=== PATIENT | female | born 1970 | race Caucasian/White ===

== ENCOUNTER 2016-08-11 16:06 | Observation (INO) | payer BC ==
[2016-08-11] MEDS ORDERED: Aspirin Low Dose CHEW TAB* 81 MG PO ONE (18:07)
[2016-08-11 18:16] LABS: Hematocrit 37 % (35-47); Hemoglobin 11.9 g/dl (12.0-16.0); Mean Corpuscular HGB Conc 32 g/dl (31-36); Mean Corpuscular Hemoglobin 25 pg (27-31); Mean Corpuscular Volume 77 fL (80-97); Mean Platelet Volume 9 um3 (7.4-10.4); Red Blood Count 4.82 10^6/ul (4.0-5.4); Red Cell Distribution Width 15 % (10.5-15); White Blood Count 9.4 10^3/ul (3.5-10.8)
[2016-08-11 18:28] LABS: ALT 27 U/L (7-52); Albumin 4.2 g/dL (3.2-5.2); Alkaline Phosphatase 44 U/L (34-104); BUN/Creatinine Ratio 29.2 (8-20); Blood Urea Nitrogen 19 mg/dL (6-24); CO2 Carbon Dioxide 27 mmol/L (22-32); Calcium 9.3 mg/dL (8.6-10.3); Chloride 96 mmol/L (101-111); EGFR African American 127.9 (>60); EGFR Non-African American 99.5 (>60); Globulin 3.2 g/dL (2-4); Glucose 116 mg/dL (70-100); Sodium 130 mmol/L (133-145); Total Protein 7.4 g/dL (6.4-8.9)
--- NOTE | 2016-08-11 18:33 | RAD ---
INDICATION: Hypertension COMPARISON: None TECHNIQUE: An AP portable view obtained at 1818 hours is submitted. FINDINGS: Bones/Soft Tissues: There are no acute bony findings. Cardiomediastinal: The cardiomediastinal silhouette is normal. Lungs: There are no infiltrates. Pleura: There are no pleural effusions. Other: None IMPRESSION: NO ACTIVE DISEASE.
[2016-08-11] MEDS ORDERED: Metoprolol Tartrate IV* 1 MG/ML 5 ML VIAL IV ONE (19:18)
[2016-08-11] MEDS ORDERED: Aspirin TAB* 325 MG PO ONE (19:18)
[2016-08-11] MEDS ORDERED: Ondansetron INJ* 2 MG/ML VIAL IV PRN (20:00)
[2016-08-11] MEDS ORDERED: Acetaminophen TAB* 325 MG PO PRN (20:00)
[2016-08-11] MEDS ORDERED: hydrALAZINE IV* 20 MG/ML VIAL IV SLOW PU PRN (20:00)
[2016-08-11] MEDS: cloNIDine TAB* 0.1 MG PO SCH ×2 (20:35→21:49)
[2016-08-11] MEDS: amLODIPine TAB* 5 MG PO SCH (20:35)
--- NOTE | 2016-08-11 22:58 | HP ---
HISTORY AND PHYSICAL: DATE OF ADMISSION: 08/11/16 PRIMARY CARE PROVIDER: [facility]. ATTENDING PHYSICIAN WHILE IN THE HOSPITAL: Eyad Herndon MD * (report dictated by Ronald Cheung NP). CHIEF COMPLAINT: Elevated blood pressure. HISTORY OF PRESENT ILLNESS: Mrs. Reyes is a 45-year-old female patient who carries a history of hypertension since the age of 21. She states she has been taking her medications as prescribed. She has not missed any doses. She states that in April, her last blood pressure was in the 170s and her Vasotec hydrochlorothiazide was doubled. She comes in today because she was sitting at work, she felt flush. She had an episode of chest discomfort on the left side, worse with a deep breath, lasted 1 second and then went away. 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 When they checked, it was noted that the systolics were in the 200s and her diastolics were over 110. She was referred to her primary who evaluated her, did an EKG. It was noted that her blood pressure was 260 systolically and it was felt that she should be evaluated in the ER for this. The patient does states that she has a dull frontal headache, but she denies having any chest pressure now. Denies having any shortness of breath. Denies having any swelling in the legs. Denies having any difficulty with urination. She states that there was concern and so she decided to come in. The blood pressure here in the ER was noted to be in the 200s. She denies having any recent illnesses. She does state that she does drink coffee about 2 cups a day. Sometimes, she does drink soda throughout the day. There has been no reports of drug abuse and no reports of vled-amo-[id number] congestants. She was evaluated, it was noted that the blood pressure was in the 200s and because of this, the hospitalist service was asked to evaluate for admission. PAST MEDICAL HISTORY: Significant for hypertension. PAST SURGICAL HISTORY: She has had a tubal ligation. HOME MEDICATIONS: According to her list include: 1. Naproxen 1 tablet daily as needed. 2. Vasotec/hydrochlorothiazide 10/25 mg, she takes 2 of those tablets daily. 3. Prozac 20 mg daily. 4. Clonidine 0.2 mg p.o. b.i.d. ALLERGIES TO MEDICATION: Include no known drug allergies. FAMILY HISTORY: She is adopted, but she does believe her biological father had a type of cancer. SOCIAL HISTORY: She used to be a pack a day smoker. She quit in 2003. She rarely drinks alcohol. She is with children. Surrogate decision maker is her . REVIEW OF SYSTEMS: There is no documented fever. She denied having any significant weight change. There was no double vision. There is no ear discharge. She denies having any rhinorrhea. No sore throat. No thyroid enlargement. There was one episode of chest discomfort. It is now gone. She denies having any shortness of breath. Denies having any abdominal pain. There is no nausea, no vomiting. There is no dysuria. No frequency, no loss of consciousness, no pruritus, and no skin ulceration. Review of 14 systems completed, all others negative. PHYSICAL EXAMINATION GENERAL: At this time, Mrs. Reyes is a 45-year-old female patient. She does not appear to be in any acute distress. She is sitting in the ER stretcher. She is well nourished, well developed. VITAL SIGNS: Reveals blood pressure now 226/101. She just received her 5 of Lopressor. Heart rate 83, respirations 15, O2 sat 98%, temperature 98.1. HEENT: Head: Atraumatic, normocephalic. Eyes: EOMs are intact. Sclerae anicteric. Throat: Oral mucosa appears to be moist. No oropharyngeal erythema. NECK: Supple. LUNGS: Clear to auscultation bilaterally. No wheezes, rales, or rhonchi. HEART: Sounds S1, S2. Regular rate and rhythm. No murmurs, rubs, or gallops. ABDOMEN: Soft, flat, nontender. Bowel sounds present. EXTREMITIES: Pulses 2+ throughout. She is able to move all 4 extremities with 5/5 strength. NEUROLOGIC: The patient is awake. He is alert. He is oriented x3. Tongue midline. Hand Cloth Examiner were equal. No gross focal deficits. SKIN: Intact. DIAGNOSTIC STUDIES/LAB DATA: Labs today revealed WBC of 9.4, RBC of 4.82, hemoglobin 11.9, hematocrit of 37, platelet count of 263. Sodium was 130, potassium 3.5, chloride 96, bicarb 27, BUN 19, creatinine of 0.65, glucose 116, lactic 1.1, calcium 9.3, total bili 0.4, AST 17, ALT 27, alk phos 44, troponin 0 , albumin 4.2. She did have a chest x-ray obtained today as well, which revealed no active disease. She had an EKG obtained today as well, showed a normal sinus rhythm, rate of 80. She did have LVH, but no ST elevations or T- wave inversions. It was reviewed to the previous EKG, it is similar. Old medical records were reviewed. ASSESSMENT AND PLAN: Mrs. Reyes is a 45-year-old female patient coming into the ER today with complaints of one episode of chest discomfort lasting a second. In addition to this, now found to have uncontrolled blood pressure. She will be admitted under observation status for: 1. Hypertensive urgency: At this point, I am going to go ahead and give her 10 of Norvasc, give her her clonidine that she is supposed to take tonight. I have ordered p.r.n. hydralazine. She has been given 5 of Lopressor. She literally was just given this about 10 minutes ago, so I am waiting to see what her blood pressure does and we will continue to follow. She does not have any signs of end organ damage and will continue to follow. 2. Chest pain: This is very atypical. It lasted a second, got worse with a deep breath. I do not believe this is related to the blood pressure. If anything, the dull headache she has is related to the blood pressure. I will cycle her troponins. We will check two more. We will repeat the EKG in the morning. We will follow. 3. DVT prophylaxis: She will be placed on SCDs. 4. Fluids, electrolyte, nutrition: Heart healthy diet. 5. Code status: Full code. 6. I did ask her to abstain from drinking caffeine. TIME SPENT: Time spent on the admission was 60 minutes, greater than half the time was spent vvol-[id number] with the patient obtaining my history and physical, the other half time is spent going over the plan of care with the patient and implementing plan of care. I did discuss the plan of care with my attending, Dr. Herndon; he is in agreement. RONALD CHEUNG NP CC: [facility] * [id number]/CPS #: [id number]
[2016-08-12 06:14] LABS: Hematocrit 35 % (35-47); Hemoglobin 11.3 g/dl (12.0-16.0); Mean Corpuscular HGB Conc 32 g/dl (31-36); Mean Corpuscular Hemoglobin 25 pg (27-31); Mean Corpuscular Volume 76 fL (80-97); Mean Platelet Volume 9 um3 (7.4-10.4); Red Blood Count 4.62 10^6/ul (4.0-5.4); Red Cell Distribution Width 15 % (10.5-15); White Blood Count 7.3 10^3/ul (3.5-10.8)
[2016-08-12 06:31] LABS: BUN/Creatinine Ratio 24.1 (8-20); Calcium 8.7 mg/dL (8.6-10.3); EGFR African American 145.9 (>60); EGFR Non-African American 113.5 (>60); HDL Cholesterol 43.8 mg/dL; Potassium 3.9 mmol/L (3.5-5.0)
[2016-08-12] MEDS: cloNIDine TAB* 0.1 MG PO SCH (07:47)
[2016-08-12] MEDS: amLODIPine TAB* 5 MG PO SCH (07:47)
[2016-08-12] MEDS ORDERED: FLUoxetine CAP* 20 MG PO SCH (09:00)
[2016-08-12] MEDS ORDERED: Enalapril TAB* 20 MG PO SCH (09:00)
[2016-08-12] MEDS ORDERED: Hydrochlorothiazide TAB* 25 MG PO SCH (09:00)
--- NOTE | 2016-08-12 11:25 | DCNOTE ---
Patient seen this morning. Reports feeling well. Mild headache, no recurrence of chest pain. On exam, obese, F, laying in bed in NAD, lungs CTA B/L, no w/r/r, no LE edema D/C home with additional Norvasc 10 mg daily in addition to home medications
[2016-08-12 12:25] VITALS: BP 113/56
--- NOTE | 2016-08-13 02:23 | DS ---
DISCHARGE SUMMARY: DATE OF ADMISSION: 08/11/16 DATE OF DISCHARGE: 08/12/16 PRIMARY CARE PHYSICIAN: [facility]. PRINCIPAL DISCHARGE DIAGNOSIS: Accelerated hypertension. DISCHARGE MEDICATION REGIMEN: 1. Amlodipine 10 mg by mouth daily. 2. Naproxen 500 mg daily as needed for pain. 3. Enalapril hydrochlorothiazide 10/25 two tablets by mouth daily. 4. Fluoxetine 20 mg by mouth daily. 5. Clonidine 0.2 mg by mouth three times daily. STUDIES DONE DURING HOSPITALIZATION: Chest x-ray, impression: No active disease. HISTORY OF PRESENT ILLNESS AND HOSPITAL SUMMARY: Please see the full history and physical by Ronald vargas NP for full details. Briefly, Ms. Reyes is a 45-year- old female with past medical histor y of hypertension, who presents to the hospital after she felt flush at work and had a very brief on e second episode of left-sided chest pain. She checked her blood pressure at work and her systolics were noted to be in the 200s with diastolic over 110. She then was referred to her PCP and her blo od pressure were noted to be even higher there. She was sent to the ED for further evaluation. In the emergency department, she got some Lopressor and was given 10 mg of Norvasc in addition to her h ome medications. She had no further chest pain throughout the hospitalization and her troponins wer e trended and remained negative. She is monitored on telemetry with no arrhythmias and no concernin g changes. Her blood pressure improved significantly with the addition of amlodipine. She will be discharged home on 10 mg, however, she is instructed to buy a blood pressure cuff and that she notes that her blood pressures are low or if she feels dizzy or lightheaded to cut back on the amlodipine from 10 mg daily to 5 mg daily. She will make an appointment with her PCP on Sunday. TIME SPENT: Total time spent on this discharge 40 minutes. This is a summary of the hospitalization, please see the full medical record for further details. [id number]/[facility] #: [id number]
--- NOTE | 2016-08-26 20:53 | ED ---
Santiago Mcintosh Michael, scribed for Alan Tsang MD on 08/11/16 at 1923 . Hypertension - HPI Summary HPI Summary: 45 y/o female was referred to the ED by her PCP office for blood pressure of 232 /137 today. The pt reports that she started feeling "flush" at 1200 today with an increased blood pressure of 200/100. Later in the day, the pt visited her PCP office, and her blood pressure was 232/137. Currently at the ED, her blood pressure is 220/215. She also c/o nausea, chest pain that was aggravated with deep breathes, and a mild MEJIA. The pt denies slurred speech and difficulty ambulating. She denies hx of CAD and DM. The FHx is unknown because pt is adopted. The pt has a hx of high blood pressure episodes one year ago. PA at PCP office believed the pt had a subconjunctival hemorrhage and funduscopic exam was completed and nml. - History of Current Complaint Chief Complaint: EDHypertension Stated Complaint: HIGH BLOOD PRESSURE Time Seen by Provider: 08/11/16 16:26 Hx Obtained From: Patient, Medical Records Onset/Duration: Started Hours Ago, Still Present Timing: Constant Aggravating Factor(s): Nothing Alleviating Factor(s): Nothing Associated Signs & Symptoms: Negative - visual changes. trouble ambulating., Chest Pain, Headaches, Other: - nausea - Allergies/Home Medications Allergies/Adverse Reactions: Allergies Allergy/AdvReac Type Severity Reaction Status Date / Time No Known Allergies Allergy Verified 08/21/16 08:26 PMH/Surg Hx/FS Hx/Imm Hx Endocrine/Hematology History: Denies: Hx Diabetes Cardiovascular History: Denies: Hx Coronary Artery Disease - Cancer History Hx Chemotherapy: No Hx Radiation Therapy: No Infectious Disease History: No Infectious Disease History: Denies: Traveled Outside the [place] in Last 30 Days - Family History Known Family History: Positive: Unknown Family History: Pt is abdopted and does not know FHx - Social History Occupation: Employed Full-time Lives: With Family Alcohol Use: None Substance Use Type: Reports: None Smoking Status (MU): Never Smoked Tobacco Review of Systems Negative: Fever, Chills Negative: Erythema Negative: Sore Throat Positive: Chest Pain, Other - hypertension Negative: Shortness Of Breath, Cough Positive: Nausea. Negative: Abdominal Pain, Vomiting Negative: hematuria Negative: Edema Negative: Rash Positive: Headache All Other Systems Reviewed And Are Negative: Yes Physical Exam - Summary Physical Exam Summary: Constitutional: Well-developed, Well-nourished, Alert. (-) Distressed Skin: Warm, Dry HENT: Normocephalic; Atraumatic Eyes: Conjunctiva normal Neck: Musculoskeletal ROM normal neck. (-) JVD, (-) Stridor, (-) Tracheal deviation Cardio: Rhythm regular, rate normal, Heart sounds normal; Intact distal pulses; The pedal pulses are 2+ and symmetric. Radial pulses are 2+ and symmetric. ~(-) Murmur Pulmonary/Chest wall: Effort normal. (-) Respiratory distress, (-) Wheezes, (-) Rales Abd: Soft, (-) Tenderness, ~(-) Distension, (-) Guarding, (-) Rebound Musculoskeletal: (-) Edema Lymph: (-) Cervical adenopathy Neuro: Alert, Oriented x3 Psych: Mood and affect Normal Funduscopic Exam normal as well Triage Information Reviewed: Yes Vital Signs On Initial Exam: Initial Vitals Temp Pulse Resp BP Pulse Ox 98.1 F 90 20 226/115 100 08/11/16 16:16 08/11/16 16:16 08/11/16 16:16 08/11/16 16:16 08/11/16 16:16 Vital Signs Reviewed: Yes Diagnostics - Vital Signs Vital Signs Temp Pulse Resp BP Pulse Ox 08/11/16 18:41 15 226/101 08/11/16 18:22 15 08/11/16 17:30 86 15 191/92 98 08/11/16 17:00 85 15 187/100 99 08/11/16 16:30 92 17 217/99 99 08/11/16 16:27 97 99 08/11/16 16:25 225/104 08/11/16 16:23 256/138 08/11/16 16:16 98.1 F 90 20 226/115 100 - Laboratory Lab Results: Lab Results 08/11/16 08/11/16 08/11/16 Range/Units 16:43 16:43 18:30 WBC 9.4 (3.5-10.8) 10^3/ul RBC 4.82 (4.0-5.4) 10^6/ul Hgb 11.9 L (12.0-16.0) g/dl Hct 37 (35-47) % MCV 77 L (80-97) fL MCH 25 L (27-31) pg MCHC 32 (31-36) g/dl RDW 15 (10.5-15) % Plt Count 263 (150-450) 10^3/ul MPV 9 (7.4-10.4) um3 Neut % (Auto) 53.7 (38-83) % Lymph % (Auto) 33.6 (25-47) % [place] % (Auto) 6.8 (1-9) % Eos % (Auto) 4.9 (0-6) % Baso % (Auto) 1.0 (0-2) % Absolute Neuts (auto) 5.0 (1.5-7.7) 10^3/ul Absolute Lymphs (auto) 3.2 (1.0-4.8) 10^3/ul Absolute Monos (auto) 0.6 (0-0.8) 10^3/ul Absolute Eos (auto) 0.5 (0-0.6) 10^3/ul Absolute Basos (auto) 0.1 (0-0.2) 10^3/ul Absolute Nucleated RBC 0.01 10^3/ul Nucleated RBC % 0.1 Sodium 130 L (133-145) mmol/L Potassium TNP Chloride 96 L (101-111) mmol/L Carbon Dioxide 27 (22-32) mmol/L Anion Gap TNP BUN 19 (6-24) mg/dL Creatinine 0.65 (0.51-0.95) mg/dL Est GFR ( Amer) 127.9 (>60) Est GFR (Non-Af Amer) 99.5 (>60) BUN/Creatinine Ratio 29.2 H (8-20) Glucose 116 H (70-100) mg/dL Lactic Acid 1.1 (0.5-2.0) mmol/L Calcium 9.3 (8.6-10.3) mg/dL Total Bilirubin 0.40 (0.2-1.0) mg/dL AST TNP ALT 27 (7-52) U/L Alkaline Phosphatase 44 (34-104) U/L Troponin I 0.00 (<0.04) ng/mL Total Protein 7.4 (6.4-8.9) g/dL Albumin 4.2 (3.2-5.2) g/dL Globulin 3.2 (2-4) g/dL Albumin/Globulin Ratio 1.3 (1-3) Result Diagrams: 08/12/16 05:47 08/12/16 05:46 Lab Statement: Any lab studies that have been ordered have been reviewed, and results considered in the medical decision making process. - Radiology CXR Xray Interpretation: No Acute Changes Radiology Interpretation Completed By: Radiologist - EKG EK EKG Rhythm: Sinus Rhythm - 80 bpm EKG Interpretation: no STEMI. no ectopy Hypertension Course/Dx - Diagnoses Provider Diagnoses: Hypertensive emergency, Chest pain, unspecified - Physician Notifications Discussed Care Of Patient With: Dr. Herndon (Hospitalist) Time Discussed With Above Provider: 19:28 Instructed by Provider To: Admit As Inpatient - pt is accepted as an admission by Dr. Herndon Discharge - Discharge Plan Condition: Good Disposition: ADMITTED TO [facility] The documentation as recorded by the Santiago beltran Michael accurately reflects the service I personally performed and the decisions made by , Alan Tsang MD.
== END 2016-08-12 13:00 | disposition home or self-care (01) ==
LOC: ED 16:06 → MEDTELE 19:56
PROVIDERS: ADMIT Internal Medicine; ATTEND Hospitalist
DX: I16.0 Hypertensive urgency (principal); Z87.891 Personal history of nicotine dependence; R07.9 Chest pain, unspecified; Z79.899 Other long term (current) drug therapy
CPT/HCPCS: 36415; 71010; 80048; 80053; 80061; 83036; 83605; 84484; 85025; 85610; 93005; 96374; 99283; A9270-GY; G0378; J3490

== ENCOUNTER 2018-03-20 17:45 | Emergency (ER) | payer BC ==
--- NOTE | 2018-03-20 17:56 | UC ---
Skin Complaint HPI - History of Current Complaint Time Seen by Provider: 03/20/18 17:55 Stated Complaint: SKIN COMPLAINT - Allergy/Home Medications Allergies/Adverse Reactions: Allergies Allergy/AdvReac Type Severity Reaction Status Date / Time No Known Allergies Allergy Verified 03/20/18 17:51 Home Medications: Home Medications Ergocalciferol (Vitamin D2) [Vitamin D2] 2,000 unit PO DAILY 03/20/18 [History Confirmed 03/20/18] Spironolactone 25 mg PO DAILY 03/20/18 [History Confirmed 03/20/18] amLODIPine TAB* [Norvasc 5 mg TAB*] 5 mg PO DAILY 03/20/18 [History] PMH/Surg Hx/FS Hx/Imm Hx - Surgical History Surgical History: Yes Surgery Procedure, Year, and Place: [facility] silicone implant permanent female contraception device-safe to 3T - Social History Alcohol Use: None Substance Use Type: None Smoking Status (MU): Former Smoker Discharge - Discharge Plan Referrals: Solis Flores MD [Primary Care Provider] -
[2018-03-20 18:05] VITALS: BP 156/98
[2018-03-20] MEDS ORDERED: Lidocaine 1%* 5 ML VIAL INJ ONE (18:23)
[2018-03-20] MEDS ORDERED: Lidocaine 1%* 5 ML VIAL ONE (18:24)
--- NOTE | 2018-03-20 18:25 | UC ---
Skin Complaint HPI - HPI Summary HPI Summary: NOTICED A TENDER SPOT RIGHT PERINEUM ABOUT 1 MONTH AGO. OVER THE PAST FEW DAYS IT GOT BIGGER AND MORE PAINFUL. SAW PCP WHO ADVISED CHIEF NURSING EXECUTIVE F/U. COULD NOT GET INTO CHIEF NURSING EXECUTIVE SO CAME HERE. NO FEVER. - History of Current Complaint Chief Complaint: UCSkin Time Seen by Provider: 03/20/18 17:55 Stated Complaint: SKIN COMPLAINT Hx Obtained From: Patient Hx Last Menstrual Period: 03/06/2018 Onset/Duration: Gradual Onset, Lasting Weeks, Still Present Timing: Constant Onset Severity: Mild Current Severity: Moderate Pain Intensity: 2 Pain Scale Used: 0-10 Numeric Location: Discrete - RIGHT PERINEUM Character: Pain, Raised Aggravating Factor(s): Touch Alleviating Factor(s): Nothing Associated Signs & Symptoms: Positive: Tenderness - Allergy/Home Medications Allergies/Adverse Reactions: Allergies Allergy/AdvReac Type Severity Reaction Status Date / Time No Known Allergies Allergy Verified 03/20/18 17:51 Home Medications: Home Medications Ergocalciferol (Vitamin D2) [Vitamin D2] 2,000 unit PO DAILY 03/20/18 [History Confirmed 03/20/18] Spironolactone 25 mg PO DAILY 03/20/18 [History Confirmed 03/20/18] amLODIPine TAB* [Norvasc 5 mg TAB*] 5 mg PO DAILY 03/20/18 [History] Review of Systems Constitutional: Negative Skin: Other - TENDER LESION RIGHT PERINEUM Respiratory: Negative Cardiovascular: Negative Gastrointestinal: Negative All Other Systems Reviewed And Are Negative: Yes PMH/Surg Hx/FS Hx/Imm Hx Cardiovascular History: Hypertension - Surgical History Surgical History: Yes Surgery Procedure, Year, and Place: [facility] silicone implant permanent female contraception device-safe to 3T - Family History Known Family History: Negative: Hypertension - Social History Alcohol Use: Occasionally Substance Use Type: None Smoking Status (MU): Former Smoker Physical Exam Triage Information Reviewed: Yes Appearance: Well-Appearing, No Pain Distress, Well-Nourished Vital Signs: Initial Vital Signs Temp 99.4 F 03/20/18 17:51 Pulse 92 03/20/18 17:51 Resp 18 03/20/18 17:51 BP 156/98 03/20/18 17:51 Pulse Ox 99 03/20/18 17:51 Vital Signs Reviewed: Yes Eyes: Positive: Conjunctiva Clear ENT: Positive: Hearing grossly normal Neck: Positive: Supple Respiratory: Positive: No respiratory distress, No accessory muscle use Cardiovascular: Positive: Pulses Normal Abdomen Description: Positive: Soft Musculoskeletal: Positive: No Edema Neurological: Positive: Alert Psychological: Positive: Age Appropriate Behavior Skin: Positive: Other - EXTERNAL GENITALIA WNL. 1.5CM TENDER AREA OF FLUCTUANCE RIGHT PERINEUM. Course/Dx - Course Course Of Treatment: 1% LIDOCAINE FOR LOCAL ANESTHESIA. 11 BLADE USED TO INCISE CYST. BLOODY SEROUS FLUID EXPRESSED. IODOFORM PLACED. SPECIMEN SENT FOR CULTURE. HOT SOAKS. KEFLEX. RECHECK AND REMOVE PACKING IN 2 DAYS. - Diagnoses Provider Diagnoses: CYST RIGHT PERINUEM Procedures - Incision and Drainage Right PERINEUM Anesthesia: Local - 1% LIDOCAINE Instrument(s): Scalpel - 11 BLADE Packing: Gauze Discharge - Sign-Out/Discharge Documenting (check all that apply): Patient Departure All imaging exams completed and their final reports reviewed: No Studies - Discharge Plan Condition: Stable Disposition: HOME Prescriptions: Cephalexin CAP* [Keflex 500 CAP*] 1,000 mg PO BID #[id number] cap Patient Education Materials: Abscess (ED) Referrals: Solis Flores MD [Primary Care Provider] - (KEEP YOUR APPT SCHEDULED) Additional Instructions: YOUR SKIN LESION WAS MORE CONSISTENT WITH A CYST THAN AN ABSCESS. WARM/HOT COMPRESSES/SOAKS AT LEAST 4 TIMES DAILY CHANGE BANDAGE DAILY AND NEEDED IF BECOMES SOILED OR WET RETURN FOR WOUND RECHECK AND PACKING REMOVAL IN 2 DAYS. OKAY IF IT FALLS OUT SOONER THAN THAT. SPECIMEN SENT FOR CULTURE TAKE CEPHALEXIN FOR THE FULL COURSE. - Billing Disposition and Condition Condition: STABLE Disposition: Home
== END 2018-03-20 19:00 | disposition home or self-care (01) ==
LOC: UCEAST 17:45
DX: N90.7 Vulvar cyst (principal); I10 Essential (primary) hypertension; Z87.891 Personal history of nicotine dependence
CPT/HCPCS: 10060; 87070; 87205; 87640; 87641; 99212; G0463

== ENCOUNTER → 2018-05-09 13:46 | Emergency (ER) | payer BC ==
[~2018-05-09 13:46] MED LIST: Aspirin 81 mg CHEW TAB* 81 MG TAB.CHEW PO ONE; Iodixanol* (CONTRAST) 320 MG/ML 100 ML SDV IV ONE; Iohexol 350* (CONTRAST) 500 ML MDV IV ONE
--- NOTE | 2018-05-09 14:12 | ED ---
HPI Chest Pain - HPI Summary HPI Summary: A 47 y/o female presents to the ED c/o CP since 11:45 05/09/2018. She states that she saw her home energy rater this morning and was fine, but at work she c/o CP , nausea, back pain, dizziness, diarrhea, cough and numbness/tingling to her right arm. She rates her CP as 1/10 currently but states that she did have similar CP issue without the other symptoms last week lasting 2-3 hours. She denies Fever, Chills, Erythema (eyes), Sore throat, Shortness of Breath, Abdominal pain, Vomiting, Dysuria, Hematuria, Edema and Rash. She denies a Hx of blood clots but has a Hx of HTN and heart murmur. She denies drinking but smokes cigarettes occasionally. She also states that she had a fever of 105 on 05/01/2018 but her fever resolved. A couple weeks ago she also drove five hours for four days. 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 Hx Last Menstrual Period: 03/06/2018 Onset/Duration: Started Hours Ago, Still Present Timing: Constant Initial Severity: Mild Current Severity: Mild Pain Intensity: 1 Pain Scale Used: 0-10 Numeric Chest Pain Radiates: No - Additional Pertinent History Primary Care Physician: [id number] - Allergy/Home Medications Allergies/Adverse Reactions: Allergies Allergy/AdvReac Type Severity Reaction Status Date / Time No Known Allergies Allergy Verified 05/09/18 13:52 PMH/Surg Hx/FS Hx/Imm Hx Endocrine/Hematology History: Denies: Hx Diabetes Cardiovascular History: Reports: Hx Hypertension Denies: Hx Pacemaker/ICD Respiratory History: Denies: Hx Asthma Sensory History: Denies: Hx Hearing Aid Psychiatric History: Denies: Hx Panic Disorder - Cancer History Hx Chemotherapy: No Hx Radiation Therapy: No - Surgical History Surgery Procedure, Year, and Place: Adiana silicone implant permanent female contraception device-safe to 3T Infectious Disease History: No Infectious Disease History: Denies: Traveled Outside the [place] in Last 30 Days - Family History Known Family History: Negative: Hypertension - Social History Alcohol Use: Occasionally Substance Use Type: Reports: None Smoking Status (MU): Former Smoker Review of Systems Negative: Fever, Chills Negative: Erythema Negative: Sore Throat Positive: Chest Pain Positive: Cough. Negative: Shortness Of Breath Positive: Diarrhea, Nausea. Negative: Abdominal Pain, Vomiting Negative: dysuria, hematuria Positive: Myalgia - back. Negative: Edema Negative: Rash Neurological: Other - Positive: dizzines Positive: Paresthesia, Numbness All Other Systems Reviewed And Are Negative: Yes Physical Exam - Summary Physical Exam Summary: Constitutional: Well-developed, Well-nourished, Alert. (-) Distressed Skin: Warm, Dry HENT: Normocephalic; Atraumatic Eyes: Conjunctiva normal Neck: Musculoskeletal ROM normal neck. (-) JVD, (-) Stridor, (-) Tracheal deviation Cardio: Rhythm regular, rate normal, Heart sounds normal; Intact distal pulses; The pedal pulses are 2+ and symmetric. Radial pulses are 2+ and symmetric. (-) Murmur Pulmonary/Chest wall: Effort normal. (-) Respiratory distress, (-) Wheezes, (-) Rales Abd: Soft, (-) epigastric tenderness, (-) Distension, (-) Guarding, (-) Rebound Musculoskeletal: (-) Edema Lymph: (-) Cervical adenopathy Neuro: Alert, Oriented x3 Psych: Mood and affect Normal Triage Information Reviewed: Yes Vital Signs On Initial Exam: Initial Vitals Temp Pulse Resp BP Pulse Ox 98 F 74 16 145/100 99 05/09/18 13:48 05/09/18 13:48 05/09/18 13:48 05/09/18 13:48 05/09/18 13:48 Vital Signs Reviewed: Yes Diagnostics - Vital Signs Vital Signs Temp Pulse Resp BP Pulse Ox 05/09/18 13:48 98 F 74 16 145/100 99 - Laboratory Result Diagrams: 05/09/18 14:11 05/09/18 14:11 Lab Statement: Any lab studies that have been ordered have been reviewed, and results considered in the medical decision making process. - Radiology CXR Radiology Interpretation Completed By: Radiologist - No active cardiopulmonary disease. ED physician reviewed this report. - CT Chest/abdomen/pelvis CTA CT Interpretation Completed By: Radiologist - #. Negative for dissection or aneurysm of the abdominal aorta. #. Hepatosteatosis. ED physician reviewed this report. - EKG 13:56 Cardiac Rate: NL - 71 bpm EKG Rhythm: Sinus Rhythm Summary of EKG Findings: no STEMI 18:16 Cardiac Rate: NL - 78 bpm EKG Rhythm: Sinus Rhythm Summary of EKG Findings: no STEMI Re-Evaluation - Re-Evaluation First Eval Re-Evaluation Time: 19:45 Change: Improved Comment: Pt is CP free. Chest Pain Course/Dx - Course Course Of Treatment: A 47 y/o female presents to the ED c/o CP since 11:45 05/09. She states that she saw her home energy rater this morning and was fine, but at work she c/o CP, nausea, back pain, dizziness, diarrhea, cough and numbness/ tingling to her right arm. She rates her CP as 1/10 currently but states that she did have similar CP issue without the other symptoms last week lasting 2-3 hours. She denies Fever, Chills, Erythema (eyes), Sore throat, Shortness of Breath, Abdominal pain, Vomiting, Dysuria, Hematuria, Edema and Rash. She denies a Hx of blood clots but has a Hx of HTN and heart murmur. She denies drinking but smokes cigarettes occasionally. She also states that she had a fever of 105 on 05/01/2018 but her fever resolved. A couple weeks ago she also drove five hours for four days. Her PE was unremarkable. Her EKG showed NSR at 71 bpm. Her CXR revealed: No active cardiopulmonary disease. Chest/Abdomen/ Pelvis CTA impression: Negative for dissection or aneurysm of the abdominal aorta. Hepatosteatosis. Her repeat EKG showed NSR at 78 bpm. Upon re-eval the pt was CP free. Dx: Chest Pain. Considered pericarditis, recent febrile illness. The patient will be discharged home and was instructed to follow up with the [facility]. - Diagnoses Provider Diagnoses: Chest pain, unspecified Discharge - Sign-Out/Discharge Documenting (check all that apply): Patient Departure - DC - Discharge Plan Condition: Stable Disposition: HOME Patient Education Materials: Chest Pain (ED) Forms: *Work Release Referrals: [facility] [Outside] - 3 Days Solis Flores MD [Medical Doctor] - 3 Days Additional Instructions: RETURN TO THE EMERGENCY DEPARTMENT FOR CHANGING OR WORSENING SYMPTOMS - Billing Disposition and Condition Condition: STABLE Disposition: Home - Attestation Statements Document Initiated by Scribe: Yes Documenting Scribe: All Wang Provider For Whom Scribe is Documenting (Include Credential): Alan Tsang MD Scribe Attestation: I, All Wang, scribed for Alan Tsang MD on 05/10/18 at 1117. Scribe Documentation Reviewed: Yes Provider Attestation: The documentation as recorded by the scribe, All Wang accurately reflects the service I personally performed and the decisions made by me, Alan Tsang MD
[2018-05-09 14:28] LABS: ABS Basophils 0.1 10^3/ul (0-0.2); ABS Eosinophils 0.2 10^3/ul (0-0.6); ABS Lymphocytes 2.7 10^3/ul (1.0-4.8); ABS Monocytes 0.7 10^3/ul (0-0.8); ABS Neutrophils 9.3 10^3/ul (1.5-7.7); ABS Nucleated RBC 0 10^3/ul; Eosinophil % 1.6 % (0-6); Hematocrit 39 % (35-47); Lymphocyte % 20.7 % (25-47); Mean Corpuscular HGB Conc 34 g/dl (31-36); Mean Corpuscular Hemoglobin 27 pg (27-31); Mean Corpuscular Volume 80 fL (80-97); Mean Platelet Volume 7.3 fL (7.4-10.4); Nucleated Red Blood Cells % 0.1; Platelet Count 365 10^3/ul (150-450); Red Blood Count 4.81 10^6/ul (4.00-5.40); Red Cell Distribution Width 15 % (10.5-15)
[2018-05-09 14:42] LABS: EGFR Non-African American 100.3 (>60)
--- OUTSIDE RECORDS SUMMARY | 2018-05-09 14:49 | XMS REPORT ---
:1970 Author Organization Formerly [facility] Address [address] [place] [address] Care Team Providers Name Role Phone Solis Daly Unavailable Unavailable PROBLEMS Type Condition ICD9-CM Code SRI21-VT Code Onset Condition SNOMED Code Dates Status Problem Disorder of N64.9 Active 45411227 breast Problem BMI Z68.35 Active 758374071 35.0-35.9,adult Problem Obstructive sleep G47.33 Active 18751659 apnea syndrome Problem Hypertensive I16.0 Active 785772175 urgency Problem HTN I10 Active 60424431 (hypertension) Problem Seasonal F39 Active 934189711 depression Problem Cervical high R87.810 Active 487689630 risk HPV (human papillomavirus) test positive Problem Other obesity due E66.09 Active 614305445 to excess calories Problem Body mass index Z68.34 Active 165979873 (BMI) of 34.0-34.9 in adult Problem Abnormal R92.8 Active 907536278 mammogram Problem Obesity (BMI E66.9 Active 191206362 35.0-39.9 without comorbidity) Problem Prediabetes R73.03 Active 948738604 Problem Heart murmur on R01.1 Active 199868390 physical examination ALLERGIES No Known Allergies ENCOUNTERS Encounter Location Date Diagnosis [address] Feb, [place] [address] [facility] [address] [facility] Feb, Perianal abscess K61.0 [place] [address] [facility] [address] [facility], Feb, [place]ian[place] K61[place]0 [place] [address] 24 Feb, 2018 HTN ( hypertension) I10 [place] [address] 18 Feb, 2018 HTN (hypertension) I10 [place] [address] [place], 10 Feb, 2018 HTN (hypertension ) I10 ; [place] [address] Heart murmur on physical examination R01.1 ; Obstructive sleep apnea syndrome G47.33 ; Other obesity due to excess calories E66.09 and Body mass index (BMI) of 34.0-34.9 in adult Z68.[address] October, [place] [address] [facility] [address] [place] [address] [place], [place] [address] [place], October, [place] [address] Z00.00 ; Encounter for Papanicolaou smear of cervix Z12.4 ; HTN (hypertension) I10 ; Prediabetes R73.03 ; Obesity (BMI 35.0-39.9 without comorbidity) E66.9 ; BMI 35.0-35.9,adult Z68.35 ; Screening for STD (sexually transmitted disease) Z11.3 ; Heart murmur on physical examination R01.1 and Abnormal mammogram R92.[address] Sep, [place] [address] Aug, Obesity (BMI 30.0-34.9) [place] [address] [address]66[address] Jul, HTN (hypertension) I10 [place] [address] Jun, [place] [address] [facility] [address] [place] [address] [place], Jun, Influ[place] J11.1 [place] [address] [place], Apr, HTN (hypertension ) I10 ; [place] [address] Obstructive sleep apnea syndrome G47.33 ; Obesity (BMI 30.0-34.9) E66.9 and BMI 34.0-34.9,adult Z68.[address] 13 Feb, 2017 HTN (hypertension) I10 [place] [address] [facility] [address] [place], Jan, [place] [address] syndrome G47.33 ; Obesity (BMI 30.0-34.9) E66.9 and BMI 30.0-30.9,adult Z68.30 [facility] [address] [facility] Jan, HTN ( hypertension) I10 [place] [address] [facility] [address] Dec, HTN (hypertension) I10 [address] [place] [address] [facility] [address] [place] Dec, [place] [address] [facility] [address] [place], October, [place] [address] adult medical examination w/o abnormal findings Z00.00 ; Essential hypertension I10 ; Mammogram abnormal R92.8 and Obesity (BMI 30-39.9) E66.9 [facility] [address] [place], [place] [address] [facility] [address] [place], Sep, [place] [address] [facility] [address] [place], [place] [address] [facility] [address] [place], [place] [address] [facility] [address] [place], Aug, [place] [address] I16.0 [facility] [address] Aug, [address] [place] [address] [facility] [address] [place], Aug, HTN (hypertension ) I10 ; [place] [address] Hypertensive urgency I16.0 and Seasonal depression F39 [place] [facility] [address] [place], [place] [address] [facility] [address] [place], Jul, [place] [address] I16.0 [facility] [address] [place], [place] [address] [facility] [address] [place], Jul, HTN (hypertension ) [place]10 [place] [address] [facility] [address] [place], Jul, [place] [address] I16.0 [place] [facility] [address] [place], [place] [address] [place] [facility] [address] [place], [place] [address] [place] [facility] [address] [place], Apr, Disorder [place] N64.9 [place] [address] [place] [facility] [address] [place], [place] [address] [place] [facility] [address] [place], [place] [address] [place] [facility] [address], Apr, [place] R92.8 [place] [address] ; HTN (hypertension) I10 ; Herpes labialis 054.9 and Seasonal depression F39 [place] [facility] [address] [place], [place] [address] [place] [facility] [address] [place], [place] [address] [place] [facility] [address] [place], [place] [address] [place] [facility] [address] [place], [place] [address] [place] [facility] [address] [place] [address] [place] [facility] [address] [place] [address] [place] [facility] [address] [place] [address] [place] [facility] [address], Sep, [place] [address] Z00.00 ; Cervical high risk HPV (human papillomavirus) test positive R87.810 ; HTN (hypertension) I10 ; Seasonal depression F39 and Screening for malignant neoplasm of breast Z12.39 [place] [facility] [address] [place], [place] [address] [facility] [address] [place], [place] [address] [place] [facility] [address] [place], Sep, [place] [address] Z00.00 [facility] [address] [facility] Jun, HTN ( hypertension) I10 [place] [address] [place] [facility] [address] [place], Mar, HTN (hypertension ) I10 ; [place] [address] Seasonal depression F39 ; Skin tag L91.8 and Preventative health care Z00.00 IMMUNIZATIONS No Known Immunizations SOCIAL HISTORY Never Assessed REASON FOR REFERRAL FUNCTIONAL STATUS PLAN OF CARE Activity Details Follow Up 3 Months Reason:HTN VITAL SIGNS Temperature 98.8 degrees Fahrenheit 2018-03-04 Heart Rate 22 2018-03-04 Weight 181.4 2018-03-04 Height 5' 1" in 2018-03-04 BMI 34.27 kg/m2 2018-03-04 Oximetry 100 % 2018-03-04 Blood pressure systolic 160 mm Hg 2018-03-04 Blood pressure diastolic 98 mm Hg 2018-03-04 MEDICATIONS Medication Instructions Dosage Frequency Start End Duration Status Date Date Spironolactone 25 Orally Once a 1 tablet 24h Active MG day with food Fluoxetine HCl 20 Orally Once a 1 capsule 24h 90 Active mg day Clonidine HCl 0.3 Orally Once a 2 tablet 24h October, days Active MG day 2017 Vitamin D2 Active Enalapril-Hydrochl Orally Once a 1 tablets 24h Active orothiazide 10-25 day MG Norvasc 5 MG Orally Once a 1 tablets 24h Active day Naprosyn 500 mg Orally Twice a 1 tablet Active day as needed PROCEDURES Procedure Date Ordered Result Body Site BLOOD PRESSURE, MEASURED Mar 04, 2018 Oxygen saturation results documented and reviewed Mar 04, 2018 BODY MASS INDEX DOCD Mar 04, 2018 SMOKING + 2ND HAND ASSESSED Mar 04, 2018 BMI >=25 and Follow Up Plan Documented Mar 04, 2018 RESULTS No Results REASON FOR VISIT Follow up, PVP; PHQ2,BMI F/U, TETANUS SHOT-IA Insurance Providers [facility] Patient Patient Patient Patient Patient Subscriber Subscriber Subscriber Group Insurance Plan Plan Plan Plan ID Relationship Address Phone Name Date of ID Name Date of No Type Insurance Insurance Insurance Coverage to Subscriber Address Phone Name Dates Excellus [phone] Excellus Judy [id number] BCBS PPO [id number] BCBS PPO Eric 2 EPO [place] Trad [id number] Case [phone] Case self Judy [id number] Management Wily Zavala 02 Management [facility] [address] [facility] MEDICAL (GENERAL) HISTORY Type Description Date Medical History Hypertension Medical History Seasonal depression Medical History Right knee meniscal tear Medical History Herpes labialis Surgical History Adreine (sp?) like [employer] silicone in [place] for 2011 control Hospitalization History Blood pressure issues 07/2016
--- OUTSIDE RECORDS SUMMARY | 2018-05-09 14:49 | XMS REPORT ---
:1970 Author Organization [facility] Address [address] [place] [address] Care Team Providers Name Role Phone Solis Daly Unavailable Unavailable PROBLEMS Type Condition ICD9-CM Code ZUO66-ZI Code Onset Condition SNOMED Code Dates Status Problem Disorder of N64.9 Active 63416560 breast Problem BMI Z68.35 Active 289262308 35.0-35.9,adult Problem Obstructive sleep G47.33 Active 93410067 apnea syndrome Problem Hypertensive I16.0 Active 969295282 urgency Problem HTN I10 Active 50807350 (hypertension) Problem Seasonal F39 Active 756401062 depression Problem Cervical high R87.810 Active 222593916 risk HPV (human papillomavirus) test positive Problem Other obesity due E66.09 Active 638074498 to excess calories Problem Body mass index Z68.34 Active 289917643 (BMI) of 34.0-34.9 in adult Problem Abnormal R92.8 Active 142878996 mammogram Problem Obesity (BMI E66.9 Active 422931799 35.0-39.9 without comorbidity) Problem Prediabetes R73.03 Active 122726178 Problem Heart murmur on R01.1 Active 613800570 physical examination ALLERGIES No Information ENCOUNTERS Encounter Location Date Diagnosis [address] Feb, [place] [address] [facility] [address] [facility] Feb, Perianal abscess K61.0 [place] [address] [facility] [address] [facility], Feb, [place]ian[place]61[place] [address] 24 Feb, 2018 HTN ( hypertension) I10 [place] [address] 18 Feb, 2018 HTN (hypertension) I10 [place] [address] [facility] [address] [place] [address] [place], 10 Feb, 2018 HTN (hypertension ) I10 ; [place] [address] Heart murmur on physical examination R01.1 ; Obstructive sleep apnea syndrome G47.33 ; Other obesity due to excess calories E66.09 and Body mass index (BMI) of 34.0-34.9 in adult Z68.[address] October, [place] [address] [facility] [address] [place] [address] [place], [place] [address] [place], October, [place] [address] Z00.00 ; Encounter for Papanicolaou smear of cervix Z12.4 ; HTN (hypertension) I10 ; Prediabetes R73.03 ; Obesity (BMI 35.0-39.9 without comorbidity) E66.9 ; BMI 35.0-35.9,adult Z68.35 ; Screening for STD (sexually transmitted disease) Z11.3 ; Heart murmur on physical examination R01.1 and Abnormal mammogram R92.[address] Sep, [place] [address] Aug, Obesity (BMI 30.0-34.9) [place] [address] Jul, HTN (hypertension) I10 [place] [address] Jun, [place] [address] [facility] [address] [place] [address] [place], Jun, Influ[place] J11.1 [place] [address] [place], Apr, HTN (hypertension ) I10 ; [place] [address] Obstructive sleep apnea syndrome G47.33 ; Obesity (BMI 30.0-34.9) E66.9 and BMI 34.0-34.9,adult Z68.[address] 13 Feb, 2017 HTN (hypertension) I10 [place] [address] [facility] [address] [place], Jan, [place] [address] syndrome G47.33 ; Obesity (BMI 30.0-34.9) E66.9 and BMI 30.0-30.9,adult Z68.30 [facility] [address] [facility] Jan, HTN ( hypertension) I10 [place] [address] [facility] [address] Dec, HTN (hypertension) I10 [address] [place] [address] [facility] [address] [place], [place] [address] [facility] [address] [place], October, [place] [address] adult medical examination w/o abnormal findings Z00.00 ; Essential hypertension I10 ; Mammogram abnormal R92.8 and Obesity (BMI 30-39.9) E66.9 [facility] [address] [place], [place] [address] [facility] [address] [place], Sep, [place] [address] I16.0 [facility] [address] [place], [place] [address] [facility] [address] [place], [place] [address] [facility] [address] [place], Aug, [place] [address] I16.0 [facility] [address] Aug, [address] [place] [address] [facility] [address] [place], Aug, HTN (hypertension ) I10 ; [place] [address] Hypertensive urgency I16.0 and Seasonal depression F39 [facility] [address] [place], [place] [address] [facility] [address] [place], Jul, [place] [address] I16.0 [facility] [address] [place], [place] [address] [facility] [address] [place], Jul, HTN (hypertension ) [place] [address] [facility] [address] [place], Jul, [place] [address] I16.0 [place] [facility] [address] [place], [place] [address] [place] [facility] [address] [place], [place] [address] [place] [facility] [address] [place], Apr, Disorder [place] N64.9 [place] [address] [place] [facility] [address] [place], [place] [address] [place] [facility] [address] [place], [place] [address] [place] [facility] [address] [place], Apr, M[place]ogram [place] R92.8 [place] [address] ; HTN (hypertension) I10 ; Herpes labialis 054.9 and Seasonal depression F39 [place] [facility] [address] [place], [place] [address] [place] [facility] [address] [place], [place] [address] [place] [facility] [address] [place], [place] [address] [place] [facility] [address] [place], [place] [address] [place] [facility] [address] [place] [address] [place] [facility] [address] [place] [address] [place] [facility] [address] [place] [address] [place], [place] [address] [place] [facility] [address] [place], [place], [place] [address] Z00.00 ; Cervical high risk HPV (human papillomavirus) test positive R87.810 ; HTN (hypertension) I10 ; Seasonal depression F39 and Screening for malignant neoplasm of breast Z12.39 [place] [facility] [address] [place], [place] [address] [facility] [address] [place], [place] [address] [place] [facility] [address] [place], Sep, [place] [address] Z00.00 [facility] [address] [facility] Jun, HTN ( hypertension) I10 [place] [address] [place] [facility] [address] [place], Mar, HTN (hypertension ) I10 ; [place] [address] Seasonal depression F39 ; Skin tag L91.8 and Preventative health care Z00.00 IMMUNIZATIONS No Known Immunizations SOCIAL HISTORY Never Assessed REASON FOR REFERRAL FUNCTIONAL STATUS PLAN OF CARE VITAL SIGNS MEDICATIONS Unknown Medications PROCEDURES No Known procedures RESULTS No Results REASON FOR VISIT Information Request Insurance Providers [facility] Member Patient Patient Patient Patient Patient Subscriber Subscriber Subscriber Group Insurance Plan Plan Plan Plan ID Relationship Address Phone Name Date of ID Name Date of No Type Insurance Insurance Insurance Coverage to Subscriber Address Phone Name Dates Case [phone] Case self Judy [id number] Management Wily Zavala Management [facility] [address] [facility] [employer] [phone] [employer] Judy [id number] BCBS PPO [id number] BCBS PPO Eric 2 EPO Tr[place] E[place] Trad [id number] MEDICAL (GENERAL) HISTORY Type Description Date Medical History Hypertension Medical History Seasonal depression Medical History Right knee meniscal tear Medical History Herpes labialis Surgical History Adreine (sp?) like [employer] silicone in [place] for 2011 control Hospitalization History Blood pressure issues 07/2016
--- OUTSIDE RECORDS SUMMARY | 2018-05-09 14:49 | XMS REPORT | Continuity of Care Document ---
:1970 External Reference #:[id number] Author Name Trey Chiu Care Team Providers Name Role Phone Solis Daly MD Primary Care Physician Unavailable Payers Type Date Identification Numbers Payment Provider Subscriber Policy Number: [id number] [employer] Vaibhav Reyes PayID: [id number] [address] [address] [place] [address] Advance Directives Description No Information Available Problems Date Description Provider Status Onset: 08/23/2017 Obstructive sleep apnea [place] Garcia DNP, RN, Active syndrome [employer]ARMACY TE[employer]ER-[facility] Onset: 08/23/2017 Body mass index 30+ - obesity Maine Garcia DNP, RN, Active PHARMACY TE[employer]ER[employer] Family History Date Family Member(s) Problem(s) Comments Father Cancer Father due to Cancer () Father Patient is adopted Mother pt is adopted, Siblings 1 Younger sister. 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 [employer] Tobacco Use Start: Unknown Former Cigarette Smoker Quit in 2005, Used to End: Unknown smoke 6-8 per day for 15 years Smoking Status Reviewed: 05/09/18 Former Cigarette Smoker Quit in 2005, Used to smoke 6-8 per day for 15 years ETOH Use Occasionally consumes alcohol Tobacco Use Start: Unknown Patient is a former End: Unknown smoker Recreational Drug Use Denies Drug Use Exercise Type/Frequency Exercises sporadically Allergies, Adverse Reactions, Alerts Description No Known Drug Allergies Medications Medication Date Status Form Strength Qnty SIG Indications Ordering Provider Evelia NOGUEIRA 05/09/ Active Caps ER 120mg 30caps take 1 by I10 Gabriella S. 2018 24HR mouth at [place], night to N.P. start and possibly in the Am with 180mg tab Cartia XT 04/02/ Active Caps ER 180mg 30caps 1 tablet Jesu 2018 24HR by mouth F. once a day Regina Arellano Spironolactone 01/24/ Active Tablets 25mg 30tabs take 1 tab I10 Gabriella S. 2018 by mouth [place], daily N.P. Clonidine HCL / Active Tablets 0.3mg 2 tab q hs Unknown 0000 Fluoxetine HCL / Active Capsules 20mg Take One Unknown 0000 Capsule By Mouth Every Day For 90 Days Advil / Active Tablets 200mg as needed Unknown 0000 Acetaminophen / Active Tablets 500mg 2 tabs bid Unknown 0000 as needed Melatonin / Active Tablets 3mg once at Unknown 0000 night as needed Vitamin D / Active Tablets 1000Unit as needed Unknown 0000 Naproxen Sodium / Active Capsules 220mg prn Unknown 0000 Cpap / Active Device for use Unknown 0000 while sleeping Metformin HCL / Active Tablets 500mg 1 by mouth Unknown 0000 once per day in the am Metformin HCL / Active Tablets 500mg 2 tabs by Unknown 0000 mouth in the evening Cardizem 05/09/ Hx Tablets 60mg Gabriella S. 2018 - [place], 05/08/ N.P. 2018 Cephalexin 03/21/ Hx Capsules 500mg 20caps one tablet [facility] 2018 - po bid x [place], days 2017 Metoprolol 01/09/ Hx Tablets ER 25mg 60tabs 1 by mouth Jesu Succinate ER 2018 - 24HR every day F. 01/24/ Wendy Arellano M.D. Amlodipine / Hx Tablets 5mg Take Two Unknown Besylate 0000 - Tablets By Mouth 2017 Every Day Enalapril / Hx Tablets 10-25mg Take one Unknown Maleate/Hydrochl 0000 - Tablet By orothiazide Mouth 2018 Every Day Norvasc / Hx Tablets 5mg 1 tab po Unknown 0000 - once daily 2017 Immunizations Description No Information Available Vital Signs Date Vital Result Comment 05/09/2018 8:18am Height 60.5 inches 5'0.50" Weight 172.38 lb without shoes Heart Rate 68 /min BP Systolic Sitting 126 mmHg left arm BP Diastolic Sitting 88 mmHg left arm BMI (Body Mass Index) 33.1 kg/m2 Ejection Fraction 65-70% Echocardiogram 01/07/18 04/02/2018 3:36pm Height 60.5 inches 5'0.50" Weight 175.00 lb Heart Rate 88 /min BP Systolic 156 mmHg lue/reg cuff BP Diastolic 82 mmHg lue/reg cuff BMI (Body Mass Index) 33.6 kg/m2 Ejection Fraction 60-65% stress echo. 02-13-2018 03/29/2018 10:25am Height 60.5 inches 5'0.50" Weight 177.00 lb Heart Rate 88 /min BP Systolic 140 mmHg BP Diastolic 82 mmHg O2 % BldC Oximetry 99 % BMI (Body Mass Index) 34.0 kg/m2 03/21/2018 11:53am Height 60.5 inches 5'0.50" Weight 177.00 lb Heart Rate 91 /min BP Systolic 130 mmHg BP Diastolic 82 mmHg O2 % BldC Oximetry 99 % BMI (Body Mass Index) 34.0 kg/m2 Last Menstrual Period [id number] 01/30/2018 8:09am Height 60.5 inches 5'0.50" Weight 183.44 lb Heart Rate 70 /min BP Systolic Sitting 114 mmHg Rue large cuff BP Diastolic Sitting 74 mmHg Rue large cuff Respiratory Rate 16 /min O2 % BldC Oximetry 99 % BMI (Body Mass Index) 35.2 kg/m2 01/24/2018 8:45am Height 60.5 inches 5'0.50" Weight 182.00 lb Heart Rate 80 /min BP Systolic Sitting 160 mmHg lue lg cuff BP Diastolic Sitting 90 mmHg lue lg cuff BP Systolic Standing 182 mmHg BP Diastolic Standing 100 mmHg Respiratory Rate 16 /min BMI (Body Mass Index) 35.0 kg/m2 Ejection Fraction 65-70% 01/07/2018 echo 12/31/2017 9:52am Height 60.5 inches 5'0.50" Weight 181.00 lb w/shoes Heart Rate 84 /min BP Systolic Sitting 184 mmHg lue lg cuff BP Diastolic Sitting 112 mmHg lue lg cuff BP Systolic Standing 184 mmHg lue lg cuff BP Diastolic Standing 112 mmHg lue lg cuff BP Systolic Lying Down 194 mmHg la sitting repeat BP Diastolic Lying Down 104 mmHg la sitting repeat BMI (Body Mass Index) 34.8 kg/m2 08/23/2017 10:02am Height 60.5 inches 5'0.50" Weight 184.38 lb Heart Rate 74 /min BP Systolic Sitting 122 mmHg Lue large cuff BP Diastolic Sitting 88 mmHg Lue large cuff Respiratory Rate 12 /min O2 % BldC Oximetry 98 % BMI (Body Mass Index) 35.4 kg/m2 05/04/2017 7:22am Height 60.5 inches 5'0.50" Weight 188.00 lb Heart Rate 76 /min BP Systolic Sitting 136 mmHg BP Diastolic Sitting 86 mmHg Respiratory Rate 14 /min O2 % BldC Oximetry 99 % BMI (Body Mass Index) 36.1 kg/m2 Neck Circumference in inches 16 Results Test Date Facility Test Result H/L Range Note Catecholamines [facility] Norepinephrine 59 pg/mL Abnormal 1 Plasma 8 [address] [place] [address] [phone] Epinephrine <25 pg/mL 2 Dopamine <25 pg/mL 3 Basic Metabolic Panel 01/09/2018 [facility] Sodium 135 mmol/L N 135-145 [address] [place] [address] [phone] Potassium 4.6 mmol/L N 3.5-5.0 Chloride 100 mmol/L Low 101-111 Co2 Carbon Dioxide 29 mmol/L N 22-32 Anion Gap 6 mmol/L N 2-11 Glucose 97 mg/dL N 70-100 Blood Urea Nitrogen 17 mg/dL N 6-24 Creatinine 0.67 mg/dL N 0.51-0.95 BUN/Creatinine Ratio 25.4 High 8-20 Calcium 9.4 mg/dL N 8.6-10.3 Egfr Non- 95.2 >60 Egfr 115.2 >60 4 Laboratory test 01/09/2018 [facility] Aldosterone 25 ng/dL Abnormal <=21 5 finding [address] [place] [address] [phone] Cortisol 8.90 g/dL 6 1 REFERENCE VALUE 70-750 (Supine) 200-1700 (Standing) 2 REFERENCE VALUE <111 (Supine) <141 (Standing) 3 REFERENCE VALUE <30 (no postural change) ADDITIONAL INFORMATION PLEASE NOTE: High/Low flagging is based on supine normal values. This test was developed and its performance characteristics determined by [facility] in a manner consistent with CLIA requirements. This test has not been cleared or approved by the U.S. Food and Drug Administration. Test Performed by: [facility] [address] [place] [address] 4 Because ethnic data is not always readily available, this report includes an eGFR for both -Americans and non- Americans. The National Kidney Disease Education Program (NKDEP) does not endorse the use of the MDRD equation for patients that are not between the ages of 18 and 70, are , have extremes of body size, muscle mass, or nutritional status, or are non- or non-. According to the National Kidney Foundation, irrespective of diagnosis, the stage of the disease is based on the level of kidney function: Stage Description GFR(mL/min/1.73 m(2)) 1 Kidney damage with normal or decreased GFR 90 2 Kidney damage with mild decrease in GFR 60-89 3 Moderate decrease in GFR 30-59 4 Severe decrease in GFR 15-29 5 Kidney failure <15 (or dialysis) 5 ADDITIONAL INFORMATION Reference range for patients 11 years and older is based on upright A.M. collection from subjects without sodium restrictions. This test was developed and its performance characteristics determined by [facility] in a manner consistent with CLIA requirements. This test has not been cleared or approved by the U.S. Food and Drug Administration. Test Performed by: [facility] [address] [place] [address] 6 AM 8.7-22.4 PM <10 Procedures Date Code Description Status 04/02/2018 68350 EKG Tracing & Interpretation Completed 02/13/2018 77919 ECHO Stress Test Incl Perf Contiuous ekg Monitoring Completed W/Phys Superv 01/07/2018 92628 ECHO Transthoracic, Real-Time 2D With Doppler And Color Completed Flow 01/07/2018 48131 ECHO Transthoracic, Real-Time 2D With Doppler And Color Completed Flow 12/31/2017 40420 EKG Tracing & Interpretation Completed 11/23/2017 [id number] Mammogram Completed 05/13/2017 13065 Sleep Study Unattended,HRT Rate,Oxygen Sat,Resp Completed Effort/Airflow 08/12/2016 46250 EKG, Interpretation Only Completed Encounters Type Date Location Provider Dx Diagnosis Office Visit 04/02/2018 [facility] Jesu Walker I10 Essential ( primary) 3:40p Regina Arellano hypertension R01.1 Cardiac murmur, unspecified E66.9 Obesity, unspecified [facility], N90.7 Vulvar cyst 10:30a [facility] Office [facility]/21[facility]2018 [facility] N90.7 Vulvar cyst 11:30a [facility] Office Visit 01/30/2018 [facility] [place] G47.33 Obstructive sleep 8:30a [facility] Garcia, RN, apnea (adult) [facility]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) Z68.35 Body mass index (BMI) 35.0-35.9, adult Office Visit 01/24/2018 9:00a [facility] Gabriella Palma R01.1 Cardiac murmur, Of [facility] Qing Dorado unspecified G47.33 Obstructive sleep apnea (adult) (pediatric) R07.9 Chest pain, unspecified I10 Essential (primary) hypertension Office Visit 12/31/2017 9:40a [facility] Jesu Walker G47.33 Obstructive sleep Regina Arellano apnea (adult) (pediatric) E66.9 Obesity, unspecified R01.1 Cardiac murmur, unspecified I10 Essential (primary) hypertension R07.9 Chest pain, unspecified Office Visit 08/23/2017 [facility] [place] G47.33 Obstructive sleep 10:00a [facility] Garcia, RN, apnea (adult) [facility] (pediatric) E66.9 Obesity, unspecified Z68.35 Body mass index (BMI) 35.0-35.9, adult Office Visit 05/04/2017 7:30a [facility] [place] G47.33 Obstructive sleep [facility] MD Tyrone apnea (adult) [facility] (pediatric) E66.09 Other obesity due to excess calories G47.14 Hypersomnia due to medical condition Z68.36 Body mass index (BMI) 36.0-36.9, adult Office Visit 08/12/2016 [facility] I16.0 Hypertensive 7:17a Assoc,karina Olea MD urgency Hospitalists I10 Essential (primary) hypertension Office Visit 08/11/2016 [facility] U[facility] I16.0 Hypertensive 7:16a Asskarina aguero N.P. urgency Hospitalists I10 Essential (primary) hypertension Plan of Treatment Future Appointment(s):07/31/2018 8:15 am - [place] Garcia DNP, RN, [facility] at [facility]05/09/2018 - Gabriella Dorado, N.P.I10 Essential (primary) hypertensionNew Medication:Cartia XT 120 mg - take 1 by mouth at night to start and possibly in the Am with 180mg tabFollow up:3 mo OV JFMRecommendations:STOP enalapril/hctz Increase diltiazem to a total of 300mg daily (180 +120mg) Take BP as you are doing. Call in 2 weeks with BPs. Call sooner if BPs consistenly > 150R01.1 Cardiac murmur, cesimllcgmrO24.9 Obesity , yodnlbtubzsI92.9 Chest pain, unspecified
--- OUTSIDE RECORDS SUMMARY | 2018-05-09 14:49 | XMS REPORT ---
:1970 Author Organization Formerly [facility] Address [address] [place] [address] Care Team Providers Name Role Phone Solis Daly Unavailable Unavailable PROBLEMS Type Condition ICD9-CM Code CHE85-UW Code Onset Condition SNOMED Code Dates Status Problem Disorder of N64.9 Active 57000894 breast Problem BMI Z68.35 Active 900972601 35.0-35.9,adult Problem Obstructive sleep G47.33 Active 52004721 apnea syndrome Problem Hypertensive I16.0 Active 595567760 urgency Problem HTN I10 Active 13250195 (hypertension) Problem Seasonal F39 Active 490017490 depression Problem Cervical high R87.810 Active 436813236 risk HPV (human papillomavirus) test positive Problem Other obesity due E66.09 Active 674544013 to excess calories Problem Body mass index Z68.34 Active 135428557 (BMI) of 34.0-34.9 in adult Problem Abnormal R92.8 Active 844255273 mammogram Problem Obesity (BMI E66.9 Active 903090254 35.0-39.9 without comorbidity) Problem Prediabetes R73.03 Active 181147965 Problem Heart murmur on R01.1 Active 366026646 physical examination ALLERGIES No Information ENCOUNTERS Encounter Location Date Diagnosis [address] Feb, [place] [address] [facility] [address] [facility] Feb, Perianal abscess K61.0 [place] [address] [facility] [address] [facility], Feb, [place]ian[place] K61[place] [address] 24 Feb, 2018 HTN ( hypertension) I10 [place] [address] 18 Feb, 2018 HTN (hypertension) I10 [place] [address] [facility] [address] [place] [address] [place], 10 Feb, 2018 HTN (hypertension ) I10 ; [place] [address] Heart murmur on physical examination R01.1 ; Obstructive sleep apnea syndrome G47.33 ; Other obesity due to excess calories E66.09 and Body mass index (BMI) of 34.0-34.9 in adult Z68.[address] October, [place] [address] [facility] [address] [place] [address] [place], [place] [address] [place], October, [place] [address] Z00.00 ; Encounter for Papanicolaou smear of cervix Z12.4 ; HTN (hypertension) I10 ; Prediabetes R73.03 ; Obesity (BMI 35.0-39.9 without comorbidity) E66.9 ; BMI 35.0-35.9,adult Z68.35 ; Screening for STD (sexually transmitted disease) Z11.3 ; Heart murmur on physical examination R01.1 and Abnormal mammogram R92.[address] Sep, [place] [address] Aug, Obesity (BMI 30.0-34.9) [place] [address] [address]66[address] Jul, HTN (hypertension) I10 [place] [address] Jun, [place] [address] [facility] [address] [place] [address] [place], Jun, [place] J11.1 [place] [address] [place], Apr, HTN (hypertension ) I10 ; [place] [address] Obstructive sleep apnea syndrome G47.33 ; Obesity (BMI 30.0-34.9) E66.9 and BMI 34.0-34.9,adult Z68.[address] 13 Feb, 2017 HTN (hypertension) I10 [place] [address] [facility] [address] [place], Jan, [place] [address] syndrome G47.33 ; Obesity (BMI 30.0-34.9) E66.9 and BMI 30.0-30.9,adult Z68.30 [facility] [address] [facility] Jan, HTN ( hypertension) I10 [place] [address] [facility] [address] Dec, HTN (hypertension) I10 [address] [place] [address] [facility] [address] [place] Dec, [place] [address] [facility] [address] [place], October, [place] [address] adult medical examination w/o abnormal findings Z00.00 ; Essential hypertension I10 ; Mammogram abnormal R92.8 and Obesity (BMI 30-39.9) E66.9 [facility] [address] [place], [place] [address] [facility] [address] [place], Sep, [place] [address] I16.0 [facility] [address] [place] Sep, [place] [address] [facility] [address] [place], [place] [address] [facility] [address] [place], Aug, [place] [address] I16.0 [facility] [address] Aug, [address] [place] [address] [facility] [address] [place], Aug, HTN (hypertension ) I10 ; [place] [address] Hypertensive urgency I16.0 and Seasonal depression F39 [facility] [address] [place], [place] [address] [facility] [address] [place], Jul, [place] [address] I16.0 [facility] [address] [place], [place] [address] [facility] [address] [place], Jul, HTN (hypertension ) [place] [address] [facility] [address] [place], Jul, [place] [address] I16.0 [place] [facility] [address] [place], [place] [address] [place] [facility] [address] [place], [place] [address] [place] [facility] [address] [place], Apr, Disorder [place] N64.9 [place] [address] [place] [facility] [address] [place], [place] [address] [place] [facility] [address] [place], [place] [address] [place] [facility] [address] [place], Apr, [place] R92.8 [place] [address] ; HTN (hypertension) I10 ; Herpes labialis 054.9 and Seasonal depression F39 [place] [facility] [address] [place], [place] [address] [place] [facility] [address] [place], [place] [address] [place] [facility] [address] [place], [place] [address] [place] [facility] [address] [place], [place] [address] [place] [facility] [address] [place], [place] [address] [place] [facility] [address] [place] [address] [place] [facility] [address] [place] [address] [place], [place] [address] [place] [facility] [address] [place], Sep, [place] [address] Z00.00 ; Cervical high risk HPV (human papillomavirus) test positive R87.810 ; HTN (hypertension) I10 ; Seasonal depression F39 and Screening for malignant neoplasm of breast Z12.39 [place] [facility] [address] [place], [place] [address] [facility] [address] [place], [place] [address] [place] [facility] [address] [place], Sep, [place] [address] Z00.00 [facility] [address] [facility] Jun, HTN ( hypertension) I10 [place] [address] [place] [facility] [address] [place], Mar, HTN (hypertension ) I10 ; [place] [address] Seasonal depression F39 ; Skin tag L91.8 and Preventative health care Z00.00 IMMUNIZATIONS No Known Immunizations SOCIAL HISTORY Never Assessed REASON FOR REFERRAL FUNCTIONAL STATUS PLAN OF CARE VITAL SIGNS MEDICATIONS Medication Instructions Dosage Frequency Start Date End Date Duration Status Clonidine HCl Orally Once a day 2 tablet 24h 29 October, 90 days Active 0.3 MG 2018 PROCEDURES No Known procedures RESULTS No Results REASON FOR VISIT rx line Insurance Providers [facility] Health Member Patient Patient Patient Patient Patient Subscriber Subscriber Subscriber Group Insurance Plan Plan Plan Plan ID Relationship Address Phone Name Date of ID Name Date of No Type Insurance Insurance Insurance Coverage to Subscriber Address Phone Name Dates Case [phone] Case self Judy [id number] Management Wily Zavala Management [facility] [address] [facility] [phone] [employer] Judy [id number] BCBS PPO [id number] BCBS PPO Eric 2 EPO Tr[place] EPO Trad [id number] MEDICAL (GENERAL) HISTORY Type Description Date Medical History Hypertension Medical History Seasonal depression Medical History Right knee meniscal tear Medical History Herpes labialis Surgical History Adreine (sp?) like Esure silicone in [place] for 2011 control Hospitalization History Blood pressure issues 07/2016
--- OUTSIDE RECORDS SUMMARY | 2018-05-09 14:49 | XMS REPORT ---
:1970 Author Organization [facility] Address [address] [place] [address] Care Team Providers Name Role Phone Gio Moeller Unavailable Unavailable PROBLEMS Type Condition ICD9-CM Code ELN11-TX Code Onset Condition SNOMED Code Dates Status Problem Disorder of N64.9 Active 74710987 breast Problem BMI Z68.35 Active 257684646 35.0-35.9,adult Problem Obstructive sleep G47.33 Active 71889878 apnea syndrome Problem Hypertensive I16.0 Active 472998694 urgency Problem HTN I10 Active 18782069 (hypertension) Problem Seasonal F39 Active 929786172 depression Problem Cervical high R87.810 Active 951651119 risk HPV (human papillomavirus) test positive Problem Other obesity due E66.09 Active 867547647 to excess calories Problem Body mass index Z68.34 Active 679819256 (BMI) of 34.0-34.9 in adult Problem Abnormal R92.8 Active 549773142 mammogram Problem Obesity (BMI E66.9 Active 714481183 35.0-39.9 without comorbidity) Problem Prediabetes R73.03 Active 691199509 Problem Heart murmur on R01.1 Active 825359403 physical examination ALLERGIES No Known Allergies ENCOUNTERS Encounter Location Date Diagnosis [address] Feb, [place] [address] [facility] [address] [facility] Feb, Perianal abscess K61.0 [place] [address] [facility] [address] [facility] Feb, [place]ian[place] K61[place]0 [place] [address] 24 Feb, 2018 HTN ( hypertension) I10 [place] [address] 18 Feb, 2018 HTN (hypertension) I10 [place] [address] [facility] [address] [place] [address] [place], 10 Feb, 2018 HTN (hypertension ) I10 ; [place] [address] Heart murmur on physical examination R01.1 ; Obstructive sleep apnea syndrome G47.33 ; Other obesity due to excess calories E66.09 and Body mass index (BMI) of 34.0-34.9 in adult Z68.[address] October, [place] [address] [facility] [address] [place] [address] [place], [place] [address] [place], October, [place] [address] Z00.00 ; Encounter for Papanicolaou smear of cervix Z12.4 ; HTN (hypertension) I10 ; Prediabetes R73.03 ; Obesity (BMI 35.0-39.9 without comorbidity) E66.9 ; BMI 35.0-35.9,adult Z68.35 ; Screening for STD (sexually transmitted disease) Z11.3 ; Heart murmur on physical examination R01.1 and Abnormal mammogram R92.[address] Sep, [place] [address] Aug, Obesity (BMI 30.0-34.9) [place] [address] [address]66[address] Jul, HTN (hypertension) I10 [place] [address] Jun, [place] [address] [facility] [address] [facility] [place], Jun, [place] J11.1 [place] [address] [place], Apr, HTN (hypertension ) I10 ; [place] [address] Obstructive sleep apnea syndrome G47.33 ; Obesity (BMI 30.0-34.9) E66.9 and BMI 34.0-34.9,adult Z68.[address] 13 Feb, 2017 HTN (hypertension) I10 [place] [address] [facility] [address] [place], Jan, [place] [address] syndrome G47.33 ; Obesity (BMI 30.0-34.9) E66.9 and BMI 30.0-30.9,adult Z68.30 [facility] [address] [facility] Jan, HTN ( hypertension) I10 [place] [address] [facility] [address] Dec, HTN (hypertension) I10 [address] [place] [address] [facility] [address] [place], [place] [address] [facility] [address] [place], October, [place] [address] adult medical examination w/o abnormal findings Z00.00 ; Essential hypertension I10 ; Mammogram abnormal R92.8 and Obesity (BMI 30-39.9) E66.9 [facility] [address] [place], [place] [address] [facility] [address] [place], Sep, [place] [address] I16.0 [facility] [address] [place], [place] [address] [facility] [address] [place], [place] [address] [facility] [address] [place], Aug, [place] [address] I16.0 [facility] [address] Aug, [address] [place] [address] [facility] [address] [place], Aug, HTN (hypertension ) I10 ; [place] [address] Hypertensive urgency I16.0 and Seasonal depression F39 [place] [facility] [address] [place], [place] [address] [facility] [address] [place], Jul, [place] [address] I16.0 [facility] [address] [place], [place] [address] [facility] [address] [place], Jul, HTN (hypertension ) [place]10 [place] [address] [facility] [address] [place], Jul, [place] [address] I16.0 [place] [facility] [address] [place], [place] [address] [place] [facility] [address] [place], [place] [address] [place] [facility] [address] [place], Apr, Disorder [place] N64.9 [place] [address] [place] [facility] [address] [place], [place] [address] [place] [facility] [address] [place], [place] [address] [place] [facility] [address] [place], Apr, [place] R92.8 [place] [address] ; HTN (hypertension) I10 ; Herpes labialis 054.9 and Seasonal depression F39 [place] [facility] [address] [place], [place] [address] [place] [facility] [address] [place] [place], [place] [address] [place] [facility] [address] [place] [address] [place] [facility] [address] [place], [place] [address] [place] [facility] [address] [place] [address] [place] [facility] [address] [place], [place] [address] [place] [facility] [address] [place], [place] [address] [place] [facility] [address] [place], Sep, [place] [address] Z00.00 ; Cervical high risk HPV (human papillomavirus) test positive R87.810 ; HTN (hypertension) I10 ; Seasonal depression F39 and Screening for malignant neoplasm of breast Z12.39 [place] [facility] [address] [place], [place] [address] [place] [facility] [address] [place], [place] [address] [place] [facility] [address] [place], Sep, [place] [address] Z00.00 [facility] [address] [facility] Jun, HTN ( hypertension) I10 [place] [address] [place] [facility] [address] [place], Mar, HTN (hypertension ) I10 ; [place] [address] Seasonal depression F39 ; Skin tag L91.8 and Preventative health care Z00.00 IMMUNIZATIONS No Known Immunizations SOCIAL HISTORY Never Assessed REASON FOR REFERRAL FUNCTIONAL STATUS PLAN OF CARE Activity Details Follow Up as scheduled Reason: VITAL SIGNS Temperature 98.0 degrees Fahrenheit 2018-03-20 Heart Rate 22 2018-03-20 Weight 176.3 2018-03-20 Height 5' 1" in 2018-03-20 BMI 33.31 kg/m2 2018-03-20 Oximetry 98 % 2018-03-20 Blood pressure systolic 163 mm Hg 2018-03-20 Blood pressure diastolic 93 mm Hg 2018-03-20 MEDICATIONS Medication Instructions Dosage Frequency Start End Duration Status Date Date Norvasc 5 MG Orally Once a 1 tablets 24h 30 days Active day Clonidine HCl 0.3 Orally Once a 2 tablet 24h 29 October, days Active MG day 2017 Enalapril-Hydrochl Orally Once a 1 tablets 24h Active orothiazide 10-25 day MG Vitamin D2 Active Naprosyn 500 mg Orally Twice a 1 tablet Active day as needed Spironolactone 25 Orally Once a 1 tablet 24h Active MG day with food Fluoxetine HCl 20 Orally Once a 1 capsule 24h 90 Active mg day PROCEDURES Procedure Date Ordered Result Body Site BLOOD PRESSURE, MEASURED Mar 20, 2018 Oxygen saturation results documented and reviewed Mar 20, 2018 BODY MASS INDEX DOCD Mar 20, 2018 SMOKING + 2ND HAND ASSESSED Mar 20, 2018 RESULTS No Results REASON FOR VISIT Acute Walk in-Cyst Insurance Providers [facility] Health Member Patient Patient Patient Patient Patient Subscriber Subscriber Subscriber Group Insurance Plan Plan Plan Plan ID Relationship Address Phone Name Date of ID Name Date of No Type Insurance Insurance Insurance Coverage to Subscriber Address Phone Name Dates Case [phone] Case self Judy [id number] Management Wily Zavala 02 Management [facility] [address] [facility] [phone] [employer] Judy [id number] BCBS PPO [id number] BCBS PPO Eric 2 EPO Trad [place] Trad [id number] MEDICAL (GENERAL) HISTORY Type Description Date Medical History Hypertension Medical History Seasonal depression Medical History Right knee meniscal tear Medical History Herpes labialis Surgical History Adreine (sp?) like Esure silicone in [place] for 2011 control Hospitalization History Blood pressure issues 07/2016
--- OUTSIDE RECORDS SUMMARY | 2018-05-09 14:49 | XMS REPORT ---
:1970 Author Organization Formerly [facility] Address [address] [place] [address] Care Team Providers Name Role Phone Solis Daly Unavailable Unavailable PROBLEMS Type Condition ICD9-CM Code PQS35-NE Code Onset Condition SNOMED Code Dates Status Problem Disorder of N64.9 Active 72957818 breast Problem BMI Z68.35 Active 007580901 35.0-35.9,adult Problem Obstructive sleep G47.33 Active 32793302 apnea syndrome Problem Hypertensive I16.0 Active 037529716 urgency Problem HTN I10 Active 15601163 (hypertension) Problem Seasonal F39 Active 774091891 depression Problem Cervical high R87.810 Active 296314752 risk HPV (human papillomavirus) test positive Problem Other obesity due E66.09 Active 123668819 to excess calories Problem Body mass index Z68.34 Active 393281104 (BMI) of 34.0-34.9 in adult Problem Abnormal R92.8 Active 859700264 mammogram Problem Obesity (BMI E66.9 Active 719767219 35.0-39.9 without comorbidity) Problem Prediabetes R73.03 Active 776397688 Problem Heart murmur on R01.1 Active 123220930 physical examination ALLERGIES No Information ENCOUNTERS Encounter Location Date Diagnosis [address] Feb, [place] [address] [facility] [address] Feb, Perianal abscess K61.0 [place] [address] [facility] [address] [facility], Feb, [place]ian[place] K61[place]0 [place] [address] 24 Feb, 2018 HTN ( hypertension) I10 [place] [address] 18 Feb, 2018 HTN (hypertension) I10 [place] [address] [facility] [address] [place] [address] [place], 10 Feb, 2018 HTN (hypertension ) I10 ; [place] [address] Heart murmur on physical examination R01.1 ; Obstructive sleep apnea syndrome G47.33 ; Other obesity due to excess calories E66.09 and Body mass index (BMI) of 34.0-34.9 in adult Z68.[address] October, [place] [address] [facility] [address] [place] [address] [place], [place] [address] [place], October, [place] [address] Z00.00 ; Encounter for Papanicolaou smear of cervix Z12.4 ; HTN (hypertension) I10 ; Prediabetes R73.03 ; Obesity (BMI 35.0-39.9 without comorbidity) E66.9 ; BMI 35.0-35.9,adult Z68.35 ; Screening for STD (sexually transmitted disease) Z11.3 ; Heart murmur on physical examination R01.1 and Abnormal mammogram R92.[address] Sep, [place] [address] Aug, Obesity (BMI 30.0-34.9) [place] [address] [address]66[address] Jul, HTN (hypertension) I10 [place] [address] Jun, [place] [address] [facility] [address] [place] [address] [place], Jun, [place] J11.1 [place] [address] [place], Apr, HTN (hypertension ) I10 ; [place] [address] Obstructive sleep apnea syndrome G47.33 ; Obesity (BMI 30.0-34.9) E66.9 and BMI 34.0-34.9,adult Z68.[address] 13 Feb, 2017 HTN (hypertension) I10 [place] [address] [facility] [address] [place], Jan, [place] [address] syndrome G47.33 ; Obesity (BMI 30.0-34.9) E66.9 and BMI 30.0-30.9,adult Z68.30 [facility] [address] [facility] Jan, HTN ( hypertension) I10 [place] [address] [facility] [address] Dec, HTN (hypertension) I10 [address] [place] [address] [facility] [address] [place], [place] [address] [facility] [address] [place], October, [place] [address] adult medical examination w/o abnormal findings Z00.00 ; Essential hypertension I10 ; Mammogram abnormal R92.8 and Obesity (BMI 30-39.9) E66.9 [facility] [address] [place], [place] [address] [facility] [address] [place], Sep, [place] [address] I16.0 [facility] [address] [place] Sep, [place] [address] [facility] [address] [place], [place] [address] [facility] [address] [place], Aug, [place] [address] I16.0 [facility] [address] [place], [address] [place] [address] [facility] [address] [place], Aug, HTN (hypertension ) I10 ; [place] [address] Hypertensive urgency I16.0 and Seasonal depression F39 [facility] [address] [place], [place] [address] [facility] [address] [place], Jul, [place] [address] I16.0 [facility] [address] [place], [place] [address] [facility] [address] [place], Jul, HTN (hypertension ) [place] [address] [facility] [address] [place], Jul, [place] [address] I16.0 [place] [facility] [address] [place], [place] [address] [place] [facility] [address] [place], [place] [address] [place] [facility] [address] [place], Apr, Disorder [place] N64.9 [place] [address] [place] [facility] [address] [place], [place] [address] [place] [facility] [address] [place], [place] [address] [place] [facility] [address] [place], Apr, M[place] R92.8 [place] [address] ; HTN (hypertension) I10 ; Herpes labialis 054.9 and Seasonal depression F39 [place] [facility] [address] [place], [place] [address] [place] [facility] [address] [place], [place] [address] [place] [facility] [address] [place], [place] [address] [place] [facility] [address] [place] [address] [place] [facility] [address] [place] [address] [place] [facility] [address] [place], [place] [address] [place] [facility] [address] [place] [address] [place], [place] [address] [place] [facility] [address] [place], Sep, [place] [address] Z00.00 ; Cervical high risk HPV (human papillomavirus) test positive R87.810 ; HTN (hypertension) I10 ; Seasonal depression F39 and Screening for malignant neoplasm of breast Z12.39 [place] [facility] [address] [place], [place] [address] [facility] [address] [place], [place] [address] [place] [facility] [address] [place], Sep, [place] [address] Z00.00 [facility] [address] [facility] Jun, HTN ( hypertension) I10 [place] [address] [place] [facility] [address] [place], Mar, HTN (hypertension ) I10 ; [place] [address] Seasonal depression F39 ; Skin tag L91.8 and Preventative health care Z00.00 IMMUNIZATIONS No Known Immunizations SOCIAL HISTORY Never Assessed REASON FOR REFERRAL FUNCTIONAL STATUS PLAN OF CARE VITAL SIGNS MEDICATIONS Medication Instructions Dosage Frequency Start Date End Date Duration Status Norvasc 5 MG Orally Once a day 1 tablets 24h 30 days Active PROCEDURES No Known procedures RESULTS No Results REASON FOR VISIT Refill request Insurance Providers [facility] Member Patient Patient Patient Patient Patient Subscriber Subscriber Subscriber Group Insurance Plan Plan Plan Plan ID Relationship Address Phone Name Date of ID Name Date of No Type Insurance Insurance Insurance Coverage to Subscriber Address Phone Name Dates Case [phone] Case self Judy [id number] Management Wily Zavala Management [facility] [address] [facility] [employer] [phone] Excell[employer] Judy [id number] BCBS PPO [id number] BCBS PPO [place] 2 EPO [place] E[place] Trad [id number] MEDICAL (GENERAL) HISTORY Type Description Date Medical History Hypertension Medical History Seasonal depression Medical History Right knee meniscal tear Medical History Herpes labialis Surgical History Adreine (sp?) like Esure silicone in [place] for 2011 control Hospitalization History Blood pressure issues 07/2016
[2018-05-09 18:41] LABS: Urine Appearance Clear; Urine Blood Negative (Negative); Urine Color Yellow; Urine Ketones Negative (Negative); Urine Protein Negative (Negative); Urine Specific Gravity 1.017 (1.010-1.030); Urine Urobilinogen Negative (Negative)
[2018-05-09 19:53] VITALS: BP 133/81
== END | disposition home or self-care (01) ==
LOC: ED 13:46
DX: R07.9 Chest pain, unspecified (principal); F17.210 Nicotine dependence, cigarettes, uncomplicated; I10 Essential (primary) hypertension
CPT/HCPCS: 36415; 71046; 71275; 74174; 80053; 81003; 83605; 84484; 85025; 85379; 85652; 86140; 93005; 96374; 96375; 99283; A9270-GY; Q9967

== ENCOUNTER 2018-12-19 15:08 | Emergency (ER) | payer BC ==
[2018-12-19 17:01] LABS: ABS Basophils 0.1 10^3/ul (0-0.2); ABS Eosinophils 0.5 10^3/ul (0-0.6); ABS Lymphocytes 2.7 10^3/ul (1.0-4.8); ABS Monocytes 0.4 10^3/ul (0-0.8); ABS Neutrophils 3.8 10^3/ul (1.5-7.7); Eosinophil % 6.1 %; Hematocrit 37 % (35-47); Hemoglobin 12.3 g/dL (12.0-16.0); Lymphocyte % 36.1 %; Mean Corpuscular HGB Conc 33 g/dL (31-36); Mean Corpuscular Hemoglobin 25 pg (27-31); Mean Corpuscular Volume 77 fL (80-97); Mean Platelet Volume 8.1 fL (7.4-10.4); Nucleated Red Blood Cells % 0.1; Platelet Count 300 10^3/uL (150-450); Red Blood Count 4.85 10^6 /uL (3.70-4.87); Red Cell Distribution Width 15 % (10-15); White Blood Count 7.5 10^3/uL (3.5-10.8)
[2018-12-19 17:09] LABS: INR 0.95 (0.82-1.09)
[2018-12-19 17:18] LABS: ALT 10 U/L (7-52); AST 15 U/L (13-39); Albumin 4.4 g/dL (3.2-5.2); Albumin/Globulin Ratio 1.5 (1-3); Alkaline Phosphatase 58 U/L (34-104); Anion Gap 7 mmol/L (2-11); BUN/Creatinine Ratio 19.7 (8-20); Blood Urea Nitrogen 12 mg/dL (6-24); CO2 Carbon Dioxide 25 mmol/L (22-32); Calcium 9.7 mg/dL (8.6-10.3); Chloride 103 mmol/L (101-111); EGFR African American 127.8 (>60); EGFR Non-African American 105.6 (>60); Glucose 129 mg/dL (70-100); Sodium 135 mmol/L (135-145); Total Protein 7.4 g/dL (6.4-8.9)
[2018-12-19 17:25] LABS: HCG Pregnancy < 0.60 mIU/mL
--- NOTE | 2018-12-19 17:59 | ED ---
GI/ HPI - HPI Summary HPI Summary: This patient is a 48 year old F presenting to [facility] accompanied by with a chief complaint of severe vaginal bleeding due to menstrual period which began on 12/16/18, and greatly worsened on 12/19/18. Pt reports having to change both her pad and tampon every hour, noticed blood clots within the blood, cramping, feeling weak, dizzy, and nauseous. However after eating popcorn she does not feel as nausea and dizzy as previously. Currently, the bleeding has slowed down. Pt has a PMHx of hypertension. Pts OBGYN is Dr Phillip. - History of Current Complaint Chief Complaint: EDVaginalBleeding Time Seen by Provider: 12/19/18 17:54 Stated Complaint: CRAMPING AND BLEEDING PER PT Hx Obtained From: Patient Hx Last Menstrual Period: 03/06/2018 Onset/Duration: Started Days Ago - 12/16/18, Still Present, Worse Since - 12/19/18 Timing: Constant, Lasting Days Severity: Moderate Current Severity: Mild Vaginal Bleeding Description: Clots Pain Intensity: 3 Pain Characteristics: Cramping Associated Signs and Symptoms: Positive: Dizziness, Weakness, Nausea Additional Signs & Symptoms: Positive: Vaginal Bleeding, First Day of Last Menstral Period - 12/16/18 Aggravating Factor(s): Nothing Alleviating Factor(s): Nothing - Additional Pertinent History Primary Care Physician: [id number] - Allergy/Home Medications Allergies/Adverse Reactions: Allergies Allergy/AdvReac Type Severity Reaction Status Date / Time No Known Allergies Allergy Verified 12/19/18 18:03 Home Medications: Home Medications dilTIAZem ER 360 MG 24HR (NF) [Diltiazem ER 360 mg 24Hr] 360 mg PO DAILY [History Confirmed 12/19/18] PMH/Surg Hx/FS Hx/Imm Hx Endocrine/Hematology History: Denies: Hx Diabetes Cardiovascular History: Reports: Hx Hypertension Denies: Hx Pacemaker/ICD Respiratory History: Denies: Hx Asthma Sensory History: Denies: Hx Hearing Aid Psychiatric History: Denies: Hx Panic Disorder - Cancer History Hx Chemotherapy: No Hx Radiation Therapy: No - Surgical History Surgery Procedure, Year, and Place: Adiana silicone implant permanent female contraception device-safe to 3T Infectious Disease History: No Infectious Disease History: Denies: Traveled Outside the [place] in Last 30 Days - Family History Known Family History: Negative: Hypertension - Social History Alcohol Use: Occasionally Substance Use Type: Reports: None Smoking Status (MU): Former Smoker Review of Systems Positive: Fatigue Positive: Abdominal Pain - cramping , Nausea Genitourinary: Other - Positive: Vaginal Bleeding with blood clots in blood Neurological: Other - Positive: Dizzy All Other Systems Reviewed And Are Negative: Yes Physical Exam - Summary Physical Exam Summary: Appearance: The patient is well-nourished in no acute distress and in no acute pain. Skin: The skin is warm and dry and skin color reflects adequate perfusion. HEENT: The head is normocephalic and atraumatic. The pupils are equal and reactive. The conjunctivae are clear and without drainage. Nares are patent and without drainage. Mouth reveals moist mucous membranes and the throat is without erythema and exudate. The external ears are intact. The ear canals are patent and without drainage. The tympanic membranes are intact. Neck: The neck is supple with full range of motion and non-tender. There are no carotid bruits. There is no neck vein distemension. Respiratory: Chest is non-tender. Lungs are clear to auscultation and breath sounds are symmetrical and equal. Cardiovascular: Heart is regular rate and rhythm. There is no murmur or rub auscultated. There is no peripheral edema and pulses are symmetrical and equal. Abdomen: The abdomen is soft and non-tender. There are normal bowel sounds heard in all four quadrants and there is no organomegaly palpated. Musculoskeletal: There is no back tenderness noted. Extremities are non-tender with full range of motion. There is good capillary refill. There is no peripheral edema or calf tenderness elicited. Neurological: Patient is alert and oriented to person, place and time. The patient has symmetrical motor strength in all four extremities. Cranial nerves are grossly intact. Deep tendon reflexes are symmetrical and equal in all four extremities. Psychiatric: The patient has an appropriate affect and does not exhibit any anxiety or depression. Triage Information Reviewed: Yes Vital Signs On Initial Exam: Initial Vitals Temp Pulse Resp BP Pulse Ox 98.1 F 95 20 158/108 100 12/19/18 15:10 12/19/18 15:10 12/19/18 15:10 12/19/18 15:10 12/19/18 15:10 Vital Signs Reviewed: Yes Diagnostics - Vital Signs Vital Signs Temp Pulse Resp BP Pulse Ox 12/19/18 15:10 98.1 F 95 20 158/108 100 - Laboratory Lab Results: Lab Results 12/19/18 12/19/18 12/19/18 Range/Units 16:51 16:51 16:51 WBC 7.5 (3.5-10.8) 10^3/uL RBC 4.85 (3.70-4.87) 10^6 /uL Hgb 12.3 (12.0-16.0) g/dL Hct 37 (35-47) % MCV 77 L (80-97) fL MCH 25 L (27-31) pg MCHC 33 (31-36) g/dL RDW 15 (10-15) % Plt Count 300 (150-450) 10^3/uL MPV 8.1 (7.4-10.4) fL Neut % (Auto) 50.8 % Lymph % (Auto) 36.1 % [place] % (Auto) 5.6 % Eos % (Auto) 6.1 % Baso % (Auto) 1.4 % Absolute Neuts (auto) 3.8 (1.5-7.7) 10^3/ul Absolute Lymphs (auto) 2.7 (1.0-4.8) 10^3/ul Absolute Monos (auto) 0.4 (0-0.8) 10^3/ul Absolute Eos (auto) 0.5 (0-0.6) 10^3/ul Absolute Basos (auto) 0.1 (0-0.2) 10^3/ul Absolute Nucleated RBC 0.0 10^3/ul Nucleated RBC % 0.1 INR (Anticoag Therapy) 0.95 (0.82-1.09) Sodium 135 (135-145) mmol/L Potassium 4.0 (3.5-5.0) mmol/L Chloride 103 (101-111) mmol/L Carbon Dioxide 25 (22-32) mmol/L Anion Gap 7 (2-11) mmol/L BUN 12 (6-24) mg/dL Creatinine 0.61 (0.51-0.95) mg/dL Est GFR ( Amer) 127.8 (>60) Est GFR (Non-Af Amer) 105.6 (>60) BUN/Creatinine Ratio 19.7 (8-20) Glucose 129 H (70-100) mg/dL Calcium 9.7 (8.6-10.3) mg/dL Total Bilirubin 0.20 (0.2-1.0) mg/dL AST 15 (13-39) U/L ALT 10 (7-52) U/L Alkaline Phosphatase 58 (34-104) U/L Total Protein 7.4 (6.4-8.9) g/dL Albumin 4.4 (3.2-5.2) g/dL Globulin 3.0 (2-4) g/dL Albumin/Globulin Ratio 1.5 (1-3) Beta HCG, Quant < 0.60 mIU/mL Blood Type Antibody Screen 12/19/18 Range/Units 16:51 WBC (3.5-10.8) 10^3/uL RBC (3.70-4.87) 10^6 /uL Hgb (12.0-16.0) g/dL Hct (35-47) % MCV (80-97) fL MCH (27-31) pg MCHC (31-36) g/dL RDW (10-15) % Plt Count (150-450) 10^3/uL MPV (7.4-10.4) fL Neut % (Auto) % Lymph % (Auto) % [place] % (Auto) % Eos % (Auto) % Baso % (Auto) % Absolute Neuts (auto) (1.5-7.7) 10^3/ul Absolute Lymphs (auto) (1.0-4.8) 10^3/ul Absolute Monos (auto) (0-0.8) 10^3/ul Absolute Eos (auto) (0-0.6) 10^3/ul Absolute Basos (auto) (0-0.2) 10^3/ul Absolute Nucleated RBC 10^3/ul Nucleated RBC % INR (Anticoag Therapy) (0.82-1.09) Sodium (135-145) mmol/L Potassium (3.5-5.0) mmol/L Chloride (101-111) mmol/L Carbon Dioxide (22-32) mmol/L Anion Gap (2-11) mmol/L BUN (6-24) mg/dL Creatinine (0.51-0.95) mg/dL Est GFR ( Amer) (>60) Est GFR (Non-Af Amer) (>60) BUN/Creatinine Ratio (8-20) Glucose (70-100) mg/dL Calcium (8.6-10.3) mg/dL Total Bilirubin (0.2-1.0) mg/dL AST (13-39) U/L ALT (7-52) U/L Alkaline Phosphatase (34-104) U/L Total Protein (6.4-8.9) g/dL Albumin (3.2-5.2) g/dL Globulin (2-4) g/dL Albumin/Globulin Ratio (1-3) Beta HCG, Quant mIU/mL Blood Type O Positive Antibody Screen Negative Result Diagrams: 12/19/18 16:51 12/19/18 16:51 Lab Statement: Any lab studies that have been ordered have been reviewed, and results considered in the medical decision making process. Re-Evaluation - Re-Evaluation First Eval Re-Evaluation Time: 19:45 Comment: Discussed results and plan to discharge with pt. Pt was agreeable to discharge. GIGU Course/Dx - Course Course Of Treatment: Ms. Reyes presented with an unusually heavy period. Her vitals and labs were okay and she improved on her own while she was here. I spoke with Dr. Segovia about getting her follow-up and he recommended ibuprofen 600 3 times a day. - Diagnoses Provider Diagnoses: Dysfunctional uterine bleeding - Physician Notifications Discussed Care Of Patient With: Viral Segovia Time Discussed With Above Provider: 18:06 Instructed by Provider To: Other - Discussed pt case with Dr. Segovia, Dr. Segovia recommends discharge and follow up with Dr. Phillip. Discharge - Sign-Out/Discharge Documenting (check all that apply): Patient Departure - Discharge Patient Received Moderate/Deep Sedation with Procedure: No - Discharge Plan Condition: Stable Disposition: HOME Patient Education Materials: Dysfunctional Uterine Bleeding (ED) Referrals: Solis Daly MD [Primary Care Provider] - 3 Days Daniel Phillip MD [Medical Doctor] - 3 Days Additional Instructions: Follow up with Dr. Phillip within 2-3 days. Take 600 mg ibuprofen 3x a day. RETURN TO THE EMERGENCY DEPARTMENT FOR CHANGING OR WORSENING SYMPTOMS. - Billing Disposition and Condition Condition: STABLE Disposition: Home - Attestation Statements Document Initiated by Scribe: Yes Documenting Scribe: SHEMAR HERNANDEZ Provider For Whom Scribe is Documenting (Include Credential): YONI CLAYTON MD Scribe Attestation: I, SHEMAR HERNANDEZ, scribed for YONI CLAYTON MD on 12/19/18 at 1958. Scribe Documentation Reviewed: Yes Provider Attestation: The documentation as recorded by the scribe, SHEMAR HERNANDEZ accurately reflects the service I personally performed and the decisions made by me, YONI CLAYTON MD Status of Scribe Document: Viewed
[2018-12-19 20:12] VITALS: BP 185/103
== END 2018-12-19 20:13 | disposition home or self-care (01) ==
LOC: ED 15:08
DX: N93.8 Other specified abnormal uterine and vaginal bleeding (principal); I10 Essential (primary) hypertension; Z87.891 Personal history of nicotine dependence
CPT/HCPCS: 36415; 80053; 84702; 85025; 85610; 86850; 86900; 86901; 99282